=== PATIENT | male | born 1980 | race Caucasian/White ===

== ENCOUNTER 2017-01-12 07:41 | Emergency (ER) | payer MEDICAID ==
[2017-01-12] MEDS ORDERED: IPRATROPIUM BR 0.02% NEB (0.5MG) INH ONE (07:50)
[2017-01-12] MEDS ORDERED: METHYLPREDNISOLONE PF 125MG/VIAL IVP ONE (08:19)
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
[2017-01-12 08:29] LABS: HEMATOCRIT 48.6 % (42.0-52.0); HEMOGLOBIN 16.3 gm/dl (14.0-18.0); MEAN CELL VOLUME 84.2 fl (81-97); MEAN CORPUSCULAR HEMOGLOBIN 28.2 pg (27-33); MEAN CORPUSCULAR HGB CONC 33.5 g/dl (32-36); RED BLOOD COUNT 5.77 M/uL (4.40-5.70); RED CELL DISTRIBUTION WIDTH 13.3 % (11.5-14.5); WHITE BLOOD COUNT W/O DIFF 8.9 K/uL (4.2-12.2)
[2017-01-12 08:40] LABS: ALB/GLOB RATIO 1.5 (1.1-1.8); ALBUMIN 4.8 gm/dL (3.5-5.0); ALKALINE PHOSPHATASE 114 U/L (38-126); ALT/SGPT 57 U/L (21-72); AST/SGOT 28 U/L (17-59); BILIRUBIN,TOTAL 0.44 mg/dL (0.2-1.3); BLOOD UREA NITROGEN 18 mg/dL (9-20); CREATININE 0.8 mg/dL (0.66-1.25); EST GLOMERULAR FILTRATION RATE > 60 ml/min; GLUCOSE,RANDOM 111 mg/dL (70-110); TOTAL PROTEIN 7.9 gm/dL (6.3-8.2)
[2017-01-12 08:42] LABS: PLATELET COUNT 478 K/uL (130-400); PLATELET ESTIMATE INCREASED (NORMAL)
[2017-01-12] MEDS ORDERED: HYDROMORPHONE HCL 1 MG/ML CPJ IVP ONE (09:50)
[2017-01-12] MEDS ORDERED: AMPICILLIN SODIUM/SULBACTAM NA 3 G in 0.9 % SODIUM CHLORIDE 100ML 100 ML IVPB ONE (11:49)
[2017-01-12] MEDS ORDERED: ALBUTEROL SULFATE (0.083%) 2.5 MG/3 ML NEB INH ONE (11:54)
--- NOTE | 2017-01-14 16:14 | CT ANGIOGRAM REPORT ---
EXAM: CTA OF THE CHEST HISTORY: Acute difficulty breathing for one day, COPD. TECHNIQUE: Contiguous axial images from the thoracic inlet to the upper abdomen were obtained after the IV administration of 94 ml of Omnipaque 350, this was after subsequent administration of 93 ml of Omnipaque 350 which extravasated subcutaneously. The extravasation was to be managed by the ER staff at at the time of the study. Sagittal and coronal two dimensional reformatted images as well as 3D/MIP reformatted images were obtained for better anatomic delineation. Comparison: None. FINDINGS: Minimal ground glass density in the medial aspect right middle lobe and right lower lobe as well as the lingula. No consolidation or pleural effusion. Noncalcified nodule in the right upper lobe measurers 7.6 mm best seen on coronal image 88 and is partially cavitary. Noncalcified nodule left upper lobe anteriorly measures 6 mm. Central airways are patent. The heart is not enlarged and there is no pericardial effusion. Mild coronary artery calcification. No enlarged lymph nodes in the thorax. No filling defect to suggest pulmonary embolism. No thoracic aortic dissection. Moderate ectasia of the ascending aorta measuring up to 4.4 cm. The upper abdomen is unremarkable. No lytic or blastic osseous lesion. IMPRESSION: 1. No evidence of pulmonary embolism or thoracic aortic dissection. 2. Pulmonary nodules measuring up to 7.6 mm. The 7.6 mm nodule is partially cavitary. Recommend 6 month follow-up then 24 month follow-up to insure stability. 3. Moderate ectasia of the ascending aorta. 4. Minimal ground glass density at the lung bases consistent with nonspecific pneumonitis. JOB NUMBER: [id number] and [id number] [facility]
== END 2017-01-12 14:12 | disposition home or self-care (01) ==
LOC: ER 07:41
DX: J18.9 Pneumonia, unspecified organism (principal); A15.0 Tuberculosis of lung; J44.9 Chronic obstructive pulmonary disease, unspecified; Z87.891 Personal history of nicotine dependence
CPT/HCPCS: 71275; 80053; 85027; 94640; J0295; J1170; J2930; J7613

== ENCOUNTER 2017-01-12 19:08 | Inpatient (IN) | payer MEDICAID ==
[2017-01-12] MEDS ORDERED: IPRATROPIUM/ALBUTEROL (0.5MG/3MG) NEB INH ONE (19:56)
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
[2017-01-12] MEDS ORDERED: 0.9 % SODIUM CHLORIDE 1,000 ML BAG IV ONE (20:00)
[2017-01-12] MEDS: 0.9 % SODIUM CHLORIDE 1000ML 1,000 ML IV PRN (21:00)
[2017-01-12] MEDS ORDERED: ACETAMINOPHEN 500 MG TABLET PO ONE (21:06)
[2017-01-12] MEDS: KETOROLAC 30 MG/ML VIAL IVP PRN (21:49)
[2017-01-12] MEDS: LEVOFLOXACIN/D5W 750 MG in DEXTROSE 1 BAG IVPB SCH (21:50)
[2017-01-12] MEDS ORDERED: DIPHENHYDRAMINE HCL 25 MG CAPSULE PO ONE (22:13)
[2017-01-12] MEDS: ALBUTEROL SULFATE (0.083%) 2.5 MG/3 ML NEB INH PRN (22:23)
[2017-01-12] MEDS: IPRATROPIUM/ALBUTEROL (0.5MG/3MG) NEB INH SCH (22:46)
[2017-01-13] MEDS: IPRATROPIUM/ALBUTEROL (0.5MG/3MG) NEB INH SCH ×5 (05:52→22:18)
[2017-01-13] MEDS: 0.9 % SODIUM CHLORIDE 1000ML 1,000 ML IV PRN (06:00)
[2017-01-13] MEDS: ACETAMINOPHEN 500 MG TABLET PO PRN ×2 (06:03→18:03)
[2017-01-13 06:17] LABS: BASO % 0.1 % (0-6); EOS % 0.1 % (0-6); HEMATOCRIT 40.8 % (42.0-52.0); HEMOGLOBIN 13.5 gm/dl (14.0-18.0); LYMPH % 5.2 % (16-45); MEAN CELL VOLUME 85.7 fl (81-97); MEAN CORPUSCULAR HGB CONC 33.1 g/dl (32-36); MEAN PLATELET VOLUME 8.8 fl (7.4-10.4); MONO % 4.8 % (0-9); PLATELET COUNT 475 K/uL (130-400); RED BLOOD COUNT 4.76 M/uL (4.40-5.70); RED CELL DISTRIBUTION WIDTH 13.4 % (11.5-14.5)
[2017-01-13 06:26] LABS: MEAN CORPUSCULAR HEMOGLOBIN 28.3 pg (27-33)
[2017-01-13 06:47] LABS: PLATELET ESTIMATE INCREASED (NORMAL)
[2017-01-13] MEDS: LEVOFLOXACIN/D5W 750 MG in DEXTROSE 1 BAG IVPB SCH ×2 (09:03→21:10)
[2017-01-13] MEDS: METHYLPREDNISOLONE PF 125MG/VIAL IVP SCH (10:12)
[2017-01-13] MEDS: KETOROLAC 30 MG/ML VIAL IVP PRN (12:52)
[2017-01-13] MEDS: HYDROCODONE/APAP 5/325MG TABLET PO PRN (15:53)
[2017-01-13] MEDS: ENOXAPARIN 40 MG/0.4 ML SYR SQ SCH (17:02)
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
[2017-01-13] MEDS ORDERED: DIPHENHYDRAMINE HCL 25 MG CAPSULE PO ONE (20:51)
[2017-01-14] MEDS: IPRATROPIUM/ALBUTEROL (0.5MG/3MG) NEB INH SCH ×6 (02:30→21:33)
[2017-01-14] MEDS: 0.9 % SODIUM CHLORIDE 1000ML 1,000 ML IV PRN ×2 (03:00→11:46)
[2017-01-14] MEDS: HYDROCODONE/APAP 5/325MG TABLET PO PRN ×2 (03:05→20:44)
[2017-01-14 07:01] LABS: HEMATOCRIT 39.6 % (42.0-52.0); HEMOGLOBIN 12.8 gm/dl (14.0-18.0); MEAN CELL VOLUME 87.8 fl (81-97); MEAN CORPUSCULAR HGB CONC 32.3 g/dl (32-36); PLATELET COUNT 431 K/uL (130-400); RED BLOOD COUNT 4.51 M/uL (4.40-5.70); RED CELL DISTRIBUTION WIDTH 13.7 % (11.5-14.5); WHITE BLOOD COUNT W/O DIFF 14.1 K/uL (4.2-12.2)
[2017-01-14 07:09] LABS: MEAN CORPUSCULAR HEMOGLOBIN 28.3 pg (27-33)
[2017-01-14 07:11] LABS: ALB/GLOB RATIO 1.3 (1.1-1.8); ALBUMIN 3.5 gm/dL (3.5-5.0); ALKALINE PHOSPHATASE 75 U/L (38-126); ALT/SGPT 60 U/L (21-72); AST/SGOT 28 U/L (17-59); BILIRUBIN,TOTAL 0.18 mg/dL (0.2-1.3); BLOOD UREA NITROGEN 25 mg/dL (9-20); CREATININE 0.7 mg/dL (0.66-1.25); EST GLOMERULAR FILTRATION RATE > 60 ml/min; GLUCOSE,RANDOM 85 mg/dL (70-110); TOTAL PROTEIN 6.2 gm/dL (6.3-8.2)
[2017-01-14] MEDS: ENOXAPARIN 40 MG/0.4 ML SYR SQ SCH (10:13)
[2017-01-14] MEDS: METHYLPREDNISOLONE PF 125MG/VIAL IVP SCH (10:15)
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
[2017-01-14] MEDS: FLUTICASONE/SALMETEROL 250/50 DISKUS INH SCH ×3 (13:50→21:41)
[2017-01-14 15:55] LABS: AMPHETAMINE SCREEN URINE NOT DETECTED; BARBITURATE SCREEN URINE NOT DETECTED; BENZODIAZEPINE SCREEN URINE DETECTED; COCAINE SCREEN URINE NOT DETECTED; METHADONE SCREEN URINE NOT DETECTED; METHAMPHETAMINE SCREEN NOT DETECTED; OPIATE SCREEN URINE NOT DETECTED; OXYCODONE SCREEN URINE NOT DETECTED; PHENCYCLIDINE SCREEN URINE NOT DETECTED; PROPOXYPHENE SCREEN URINE NOT DETECTED; THC SCREEN URINE NOT DETECTED; TRICYCLIC ANTIDEPRESSANT SCRN NOT DETECTED
[2017-01-14] MEDS ORDERED: FLUTICASONE/SALMETEROL 500/50 DISKUS INH SCH (18:00)
[2017-01-14] MEDS: NICOTINE14 MG/24 HOUR PATCH TD SCH (18:56)
[2017-01-14] MEDS: LEVOFLOXACIN/D5W 750 MG in DEXTROSE 1 BAG IVPB SCH (21:24)
[2017-01-15] MEDS: IPRATROPIUM/ALBUTEROL (0.5MG/3MG) NEB INH SCH ×6 (02:22→21:46)
[2017-01-15] MEDS ORDERED: DIPHENHYDRAMINE HCL 25 MG CAPSULE PO ONE (02:31)
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
[2017-01-15 06:57] LABS: HEMATOCRIT 42.4 % (42.0-52.0); HEMOGLOBIN 13.7 gm/dl (14.0-18.0); MEAN CELL VOLUME 87.1 fl (81-97); MEAN CORPUSCULAR HEMOGLOBIN 28.1 pg (27-33); MEAN CORPUSCULAR HGB CONC 32.3 g/dl (32-36); MEAN PLATELET VOLUME 8.9 fl (7.4-10.4); PLATELET COUNT 408 K/uL (130-400); RED BLOOD COUNT 4.87 M/uL (4.40-5.70); RED CELL DISTRIBUTION WIDTH 13.7 % (11.5-14.5); WHITE BLOOD COUNT W/O DIFF 8.1 K/uL (4.2-12.2)
[2017-01-15 07:13] LABS: ALB/GLOB RATIO 1.5 (1.1-1.8); ALBUMIN 3.8 gm/dL (3.5-5.0); ALKALINE PHOSPHATASE 81 U/L (38-126); ALT/SGPT 58 U/L (21-72); ANION GAP 7.8 (7-16); AST/SGOT 32 U/L (17-59); BILIRUBIN,TOTAL 0.32 mg/dL (0.2-1.3); BLOOD UREA NITROGEN 18 mg/dL (9-20); CARBON DIOXIDE 29.2 mmol/L (22-30); CREATININE 0.8 mg/dL (0.66-1.25); EST GLOMERULAR FILTRATION RATE > 60 ml/min; GLUCOSE,RANDOM 74 mg/dL (70-110); TOTAL PROTEIN 6.4 gm/dL (6.3-8.2)
--- NOTE | 2017-01-15 08:41 | RADIOLOGY REPORT ---
EXAM: CHEST, TWO VIEWS HISTORY: DIFFICULTY IN BREATHING, FOLLOW-UP PNEUMONIA. TECHNIQUE: PA and lateral views of the chest were obtained. Comparison: No prior chest x-ray, but comparison is made with the chest CT dated 01/12/17. FINDINGS: The heart size is normal. There is an approximately 6 mm nodule in the left upper lung corresponding to that seen on the chest CT. Please see the chest CT report for further description of this. There is some minor residual infiltrate in the right middle lobe best seen on the lateral view. Elsewhere the lungs appear essentially clear. No pleural effusion or pneumothorax evident. IMPRESSION: 1. APPROXIMATELY 6 MM NODULE LEFT UPPER LUNG. 2. MINOR RESIDUAL INFILTRATE RIGHT MIDDLE LOBE. JOB NUMBER: [id number] MTDD
[2017-01-15] MEDS: ALBUTEROL SULFATE (0.083%) 2.5 MG/3 ML NEB INH PRN (09:19)
[2017-01-15] MEDS: FLUTICASONE/SALMETEROL 250/50 DISKUS INH SCH ×2 (09:19→21:50)
[2017-01-15] MEDS: METHYLPREDNISOLONE PF 125MG/VIAL IVP SCH (12:08)
[2017-01-15] MEDS: ENOXAPARIN 40 MG/0.4 ML SYR SQ SCH (12:09)
[2017-01-15] MEDS: HYDROCODONE/APAP 5/325MG TABLET PO PRN (14:03)
[2017-01-15] MEDS: NICOTINE14 MG/24 HOUR PATCH TD SCH (18:04)
[2017-01-15] MEDS ORDERED: LORAZEPAM 0.5 MG TABLET PO PRN (19:15)
[2017-01-15] MEDS ORDERED: LEVOFLOXACIN 500 MG TABLET PO SCH (22:00)
[2017-01-16] MEDS: IPRATROPIUM/ALBUTEROL (0.5MG/3MG) NEB INH SCH ×4 (02:31→14:18)
[2017-01-16 06:58] LABS: HEMATOCRIT 44.4 % (42.0-52.0); HEMOGLOBIN 14.5 gm/dl (14.0-18.0); MEAN CELL VOLUME 86.5 fl (81-97); MEAN CORPUSCULAR HEMOGLOBIN 28.3 pg (27-33); MEAN CORPUSCULAR HGB CONC 32.7 g/dl (32-36); MEAN PLATELET VOLUME 9.1 fl (7.4-10.4); PLATELET COUNT 466 K/uL (130-400); RED BLOOD COUNT 5.13 M/uL (4.40-5.70); RED CELL DISTRIBUTION WIDTH 13.6 % (11.5-14.5); WHITE BLOOD COUNT W/O DIFF 7.9 K/uL (4.2-12.2)
[2017-01-16 07:09] LABS: ALB/GLOB RATIO 1.5 (1.1-1.8); ALKALINE PHOSPHATASE 91 U/L (38-126); ALT/SGPT 62 U/L (21-72); ANION GAP 11.2 (7-16); AST/SGOT 31 U/L (17-59); BILIRUBIN,TOTAL 0.27 mg/dL (0.2-1.3); BLOOD UREA NITROGEN 20 mg/dL (9-20); CARBON DIOXIDE 23.8 mmol/L (22-30); CREATININE 0.8 mg/dL (0.66-1.25); EST GLOMERULAR FILTRATION RATE > 60 ml/min; GLUCOSE,RANDOM 113 mg/dL (70-110); TOTAL PROTEIN 6.6 gm/dL (6.3-8.2)
[2017-01-16 07:14] LABS: PLATELET ESTIMATE NORMAL (NORMAL)
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
--- NOTE | 2017-01-16 07:59 | RADIOLOGY REPORT ---
EXAM: LEFT HUMERUS HISTORY: PATIENT IN CAST, HISTORY OF FRACTURE, POOR HISTORIAN AND UNCERTAIN TO FRACTURE SITE. TECHNIQUE: AP and lateral views of the left humerus were obtained. Comparison: None. Encounter: Subsequent. FINDINGS: There is a plaster cast which begins at about the level of the mid portion of the left arm and extends across the elbow into the forearm. No fracture of the visualized humerus identified allowing for the artifact from the overlying cast. Please see the left forearm report from today for description of an ulnar shaft fracture site. IMPRESSION: CAST IN PLACE EXTENDING FROM THE MID SHAFT OF THE ARM ACROSS THE ELBOW INTO THE FOREARM. NO DEFINITE HUMERAL FRACTURE IDENTIFIED. JOB NUMBER: [id number] [facility]
[2017-01-16] MEDS ORDERED: PREDNISONE 20 MG TAB PO SCH (08:00)
--- NOTE | 2017-01-16 08:07 | RADIOLOGY REPORT ---
EXAM: LEFT FOREARM HISTORY: POOR HISTORIAN, HISTORY OF FRACTURE, CAST IN PLACE, UNCERTAIN OF FRACTURE SITE. TECHNIQUE: AP and lateral views of the left forearm were obtained. Comparison: None. Encounter: Subsequent. FINDINGS: There is a cast in place extending from the distal arm across the elbow throughout the length of the forearm and wrist into the hand. There is a fracture of the approximate mid shaft of the ulna. Fine detail is obscured by the cast, but this is probably a comminuted fracture with mild displacement of a comminuted fracture fragment along the dorsal ulnar aspect of the fracture line with the distal end of this comminuted fracture fragment displaced approximately 6 mm posteriorly. On the lateral view there is a suggestion of a cortical step off along the distal end of the radius with slight anterior tilting of the distal radius. It is difficult to confirm a distal radial fracture through the cast on the AP view and clinical correlation as to whether a distal radial fracture is also present. Comparison with any pre-cast films would be useful in this regard. No definite dislocation at the wrist or elbow identified. IMPRESSION: 1. COMMINUTED FRACTURE OF MID SHAFT OF THE ULNA DESCRIBED ABOVE. 2. QUESTIONABLE FRACTURE OF THE DISTAL RADIUS DESCRIBED ABOVE. 3. CAST IN PLACE OBSCURING FINE DETAIL. JOB NUMBER: [id number] [facility]
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
[2017-01-16] MEDS: ACETAMINOPHEN 500 MG TABLET PO PRN (08:13)
[2017-01-16] MEDS: FLUTICASONE/SALMETEROL 250/50 DISKUS INH SCH (10:21)
[2017-01-16] MEDS: ENOXAPARIN 40 MG/0.4 ML SYR SQ SCH (14:35)
== END 2017-01-16 15:00 | disposition home or self-care (01) | DRG 190 ==
LOC: ER 19:08 → MEDSURG 21:08
PROVIDERS: ADMIT Family Medicine; ATTEND Family Medicine
DX: J44.1 Chronic obstructive pulmonary disease with (acute) exacerbation (principal); J18.9 Pneumonia, unspecified organism; R41.82 Altered mental status, unspecified; S52.202D Unspecified fracture of shaft of left ulna, subsequent encounter for closed fracture with routine healing; F17.200 Nicotine dependence, unspecified, uncomplicated
CPT/HCPCS: 70450; 71020; 71275; 80053; 80305; 85027; 87070; 87116; 94640; 94760; 94761; 96360; 96365; 96375; 99223; 99233; 99239; 99284; 99285; J0295; J1170; J1650; J1885; J1956; J2930; J7512; J7613